=== PATIENT | male | born 1960 | race Caucasian/White ===

== ENCOUNTER 2019-05-26 12:49 | Emergency (ER) | payer OTHER ==
[2019-05-26 13:03] VITALS: BP 137/94
--- NOTE | 2019-05-26 13:21 | UC ---
General HPI - HPI Summary HPI Summary: States he has b/l ear pain for the past 8-10 days - worse on right. Hearing is an issue. Has issues with wax build up in the past. Has not taken anything for the discomfort. No fever. No URI illness. He runs out of insurance in a few days and wants to get this taken care of prior to that. No sore throat . Meds; reviewed - History of Current Complaint Chief Complaint: UCEar Stated Complaint: EAR PAIN Time Seen by Provider: 05/26/19 13:07 Pain Intensity: 5 - Allergy/Home Medications Allergies/Adverse Reactions: Allergies Allergy/AdvReac Type Severity Reaction Status Date / Time No Known Allergies Allergy Verified 05/26/19 13:03 Home Medications: Home Medications Ibuprofen 400 mg PO ONCE PRN 05/26/19 [History Confirmed 05/26/19] PMH/Surg Hx/FS Hx/Imm Hx Previously Healthy: Yes - Surgical History Surgical History: Yes Surgery Procedure, Year, and Place: finger amputation - Social History Alcohol Use: Daily Alcohol Amount: 10/day Substance Use Type: None Smoking Status (MU): Light Every Day Tobacco Smoker Amount Used/How Often: 1/2ppd Household Exposure Type: Cigarettes Review of Systems All Other Systems Reviewed And Are Negative: Yes ENT: Positive: Ear Ache Physical Exam Triage Information Reviewed: Yes Appearance: Well-Appearing Vital Signs: Initial Vital Signs Temp 99.2 F 05/26/19 12:59 Pulse 103 05/26/19 12:59 Resp 26 05/26/19 12:59 BP 137/94 05/26/19 12:59 Pulse Ox 100 05/26/19 12:59 Vital Signs Reviewed: Yes ENT: Positive: Pharynx normal, Other - cerumen impaction b/l worse on right - soft wax Respiratory: Positive: Lungs clear, Normal breath sounds Cardiovascular: Positive: RRR, No Murmur Course/Dx - Course Course Of Treatment: This is a 58 yr old with b/l cerumen impaction Unable to be removed with curette B/L ear lavage done - then able to pull out two large hardened pieces from each ear Both TM's well visualized and appear normal. Minimal erythema on right TM Plan Avoid putting anything in your ear or rinsing out your ear If hearing loss or pain continues to be an issue despite wax removed, would recommend evaluation by ENT (Ear, Nose and throat) Doctor - Diagnoses Provider Diagnosis: Impacted cerumen of both ears Discharge ED - Sign-Out/Discharge Documenting (check all that apply): Patient Departure All imaging exams completed and their final reports reviewed: No Studies - Discharge Plan Condition: Fair Disposition: HOME Patient Education Materials: Cerumen Impaction (ED) Referrals: No Primary Care Phys,NOPCP [Primary Care Provider] - Justice Hennessy MD [Medical Doctor] - Colin Ennis MD [Medical Doctor] - Additional Instructions: Avoid putting anything in your ear or rinsing out your ear If hearing loss or pain continues to be an issue despite wax removed, would recommend evaluation by ENT (Ear, Nose and throat) Doctor - Billing Disposition and Condition Condition: FAIR Disposition: Home
== END 2019-05-26 13:58 | disposition home or self-care (01) ==
LOC: UCEAST 12:49
DX: H61.23 Impacted cerumen, bilateral (principal); F17.210 Nicotine dependence, cigarettes, uncomplicated
CPT/HCPCS: 99203; G0463